=== PATIENT | female | born 1975 | race African-American/Black ===

== ENCOUNTER → 2021-04-26 | Outpatient (CLI) | payer OTHER ==
--- NOTE | 2021-04-26 14:30 | RAD ---
INDICATION: Reason: CHRONIC SINUSITIS / Spl. Instructions: / History: COMPARISON: None. TECHNIQUE: Axial CT images obtained through the facial bones without intravenous contrast. Sagittal and coronal reformations were then processed. FINDINGS: No acute fracture or dislocation of the facial bones. Visualized sinuses are well aerated including the frontal sinus, ethmoid air cells, sphenoid sinus an d maxillary sinus. Mastoid air cells are well aerated. No retro-orbital hemorrhage or mass. IMPRESSION: Paranasal sinuses are well aerated without evidence of sinusitis. Electronically signed by: Greg Painter MD (04/26/2021 2:27 PM) [id number]
== END ==
LOC: CT 11:21 → MERGE 11:21
PROVIDERS: ATTEND Otolaryngology
DX: J32.9 Chronic sinusitis, unspecified (principal)
CPT/HCPCS: 70486

== ENCOUNTER → 2021-07-29 | Outpatient (CLI) | payer OTHER ==
--- NOTE | 2021-07-29 15:42 | RAD ---
XR CERVICAL SPINE 4-5V History: Reason: NECK AND LOW BACK PAIN, DISABILITY DETERMINATION / Spl. Instructions: / History: Technique: Five-view cervical spine. Comparison: None. Findings: Normal vertebral body height and alignment. No acute fracture. Mild degenerative disc changes with di sc space narrowing most prominent C4-C5 and C5-C6. Prevertebral soft tissues are unremarkable. Normal alignment C1 on C2. Impression: 1. Mild cervical spondylosis. Electronically signed by: Ricky Shafer DO (07/29/2021 3:40 PM) [id number]
--- NOTE | 2021-07-29 15:44 | RAD ---
XR LUMBAR SPINE 2-3V History: Reason: NECK AND LOW BACK PAIN, DISABILITY DETERMINATION / Spl. Instructions: / History: Technique: 3 views lumbar spine. Comparison: None. Findings: Slight retrolisthesis L5 on S1 and L4 on L5. Normal vertebral body height. No acute fracture. Mild de generative changes L4-5 and L5-S1. Impression: 1. Mild lumbar spondylosis. Electronically signed by: Ricky Shafer DO (07/29/2021 3:41 PM) [id number]
== END ==
LOC: RAD 09:10
PROVIDERS: ATTEND Anesthesiology Pain Medicine
DX: Z02.71 Encounter for disability determination (principal); M47.817 Spondylosis without myelopathy or radiculopathy, lumbosacral region; M47.812 Spondylosis without myelopathy or radiculopathy, cervical region; M48.02 Spinal stenosis, cervical region; M50.321 Other cervical disc degeneration at C4-C5 level; M43.17 Spondylolisthesis, lumbosacral region
CPT/HCPCS: 72050; 72100